=== PATIENT | female | born 1940 | race Caucasian/White ===

== ENCOUNTER → 2017-04-05 | Outpatient (CLI) | payer MEDICARE, OTHER ==
[~2017-04-05] MED LIST: ASPI-496 PO; CALC-680 PO; DULO60CA55 PO; HYDR-3241 PO; [UNRECOGNIZED DRUG - OTHER] PO
== END | disposition home or self-care (01) ==
LOC: STAR 10:08
PROVIDERS: ATTEND Otolaryngology
DX: Z01.818 Encounter for other preprocedural examination (principal); C44.320 Squamous cell carcinoma of skin of unspecified parts of face
CPT/HCPCS: 93005

== ENCOUNTER 2017-04-12 08:37 | Emergency (ER) | payer MEDICARE ==
[~2017-04-12] VITALS: Ht 170.2 cm; Wt 82.0 kg
[~2017-04-12 08:37] MED LIST changes: -LACTATED RINGERS 1,000 ML IV SCH; -LIDOCAINE 1%, 2ML ONE; -LIDOCAINE 1%, 2ML SQ PRN
[2017-04-12 09:10] VITALS: BP 147/77
== END 2017-04-12 11:08 | disposition home or self-care (01) ==
LOC: ED 09:16
DX: S02.2XXA Fracture of nasal bones, initial encounter for closed fracture (principal); S00.83XA Contusion of other part of head, initial encounter; Z86.718 Personal history of other venous thrombosis and embolism; W01.0XXA Fall on same level from slipping, tripping and stumbling without subsequent striking against object, initial encounter; Y93.89 Activity, other specified; Y92.89 Other specified places as the place of occurrence of the external cause; Y99.9 Unspecified external cause status
CPT/HCPCS: 70450; 70486; 93005; 99284

== ENCOUNTER → 2017-04-12 | Day surgery (SDC) | payer MEDICARE, OTHER ==
[~2017-04-12] VITALS: Ht 170.2 cm; Wt 81.8 kg
[~2017-04-12] MED LIST changes: +LACTATED RINGERS 1,000 ML IV SCH; +LIDOCAINE 1%, 2ML ONE; +LIDOCAINE 1%, 2ML SQ PRN
== END ==
LOC: OUT 08:37
PROVIDERS: ATTEND Otolaryngology
DX: Z02.9 Encounter for administrative examinations, unspecified (principal)
CPT/HCPCS: J3490; J7120

== ENCOUNTER 2017-05-31 06:47 | Day surgery (SDC) | payer MEDICARE ==
[~2017-05-31] VITALS: Ht 170.2 cm; Wt 85.9 kg
[~2017-05-31 06:47] MED LIST changes: +ACET-1600 PO; +CA C1TAB59 PO; +DIPH25CA61 PO
[2017-05-31 07:30] VITALS: BP 179/85
[2017-05-31] MEDS ORDERED: LACTATED RINGERS 1,000 ML IV SCH (07:30)
[2017-05-31] MEDS ORDERED: MIDAZOLAM 1 MG/ML, 2ML ONE (07:54)
[2017-05-31] MEDS ORDERED: FENTANYL PF 100 MCG/2ML ONE ×2 (07:54)
[2017-05-31] MEDS ORDERED: CEFAZOLIN 1,000 MG ONE (07:55)
[2017-05-31] MEDS ORDERED: DEXAMETHASONE 4 MG/ML, 1ML ONE (07:55)
[2017-05-31] MEDS ORDERED: ONDANSETRON 2MG/ML, 2ML ONE (07:55)
[2017-05-31] MEDS ORDERED: PROPOFOL 10 MG/ML, 20ML ONE (07:55)
[2017-05-31] MEDS ORDERED: SUCCINYLCHOLINE 20 MG/ML, 10ML ONE (07:55)
[2017-05-31] MEDS ORDERED: ROCURONIUM 10 MG/ML ONE (08:19)
[2017-05-31] MEDS ORDERED: EPINEPHRINE 1 MG/ML, 1ML ONE (08:35)
[2017-05-31] MEDS ORDERED: BUPIVACAINE/PF 0.25% ONE (08:35)
[2017-05-31] MEDS ORDERED: GLYCOPYRROLATE 0.2MG/1ML, 5ML ONE (08:41)
[2017-05-31] MEDS ORDERED: EPHEDRINE 50 MG/ML, 1ML ONE (08:44)
[2017-05-31] MEDS ORDERED: MEPERIDINE/PF 25MG/0.5ML IVPush PRN (09:00)
[2017-05-31] MEDS ORDERED: PROMETHAZINE 25 MG/ML, 1ML IV PRN (09:00)
[2017-05-31] MEDS ORDERED: LORazepam 2 MG/ML, 1ML IVPush PRN (09:00)
[2017-05-31] MEDS ORDERED: ONDANSETRON 2MG/ML, 2ML IVPush PRN (09:00)
[2017-05-31] MEDS ORDERED: ACETAMINOPHEN 325 MG TABLET PO PRN (09:00)
[2017-05-31] MEDS ORDERED: OXYcodone 5 MG/5 ML ORAL.SOL UDC PO PRN (09:00)
[2017-05-31] MEDS ORDERED: ALBUTEROL/IPRATROPIUM 2.5MG/0.5MG, 3 ML NPPB PRN (09:00)
[2017-05-31] MEDS ORDERED: LABETALOL 5MG/ML, 20ML IV PRN (09:00)
[2017-05-31] MEDS ORDERED: HYDROmorphone 1 MG/ML, 1ML IV PRN (09:00)
[2017-05-31] MEDS ORDERED: FENTANYL PF 100 MCG/2ML IV PRN (09:00)
[2017-05-31] MEDS ORDERED: hydrALAzine 20 MG/ML, 1ML IV PRN (09:00)
[2017-05-31] MEDS ORDERED: MIDAZOLAM 1 MG/ML, 2ML IV PRN (09:00)
== END 2017-05-31 11:40 ==
LOC: OUT 06:47
PROVIDERS: ATTEND Otolaryngology
DX: C44.329 Squamous cell carcinoma of skin of other parts of face (principal); Z86.718 Personal history of other venous thrombosis and embolism
CPT/HCPCS: 11642; 88305; 88331; J0171; J0330; J0690; J1100; J2250; J2405; J2704; J3010; J3490; J7120

== ENCOUNTER → 2018-04-03 | Outpatient (CLI) | payer MEDICARE | END | disposition home or self-care (01) | LOC: RAD 12:37 | PROVIDERS: ATTEND Chiropractor | DX: M16.0 Bilateral primary osteoarthritis of hip (principal); M54.5 Low back pain; Z86.718 Personal history of other venous thrombosis and embolism | CPT/HCPCS: 72170 ==